=== PATIENT | male | born 1950 | race Caucasian/White ===

== ENCOUNTER 2021-02-06 16:40 | Emergency (ER) | payer OTHER ==
[2021-02-06 16:50] VITALS: BP 160/99; PULSE 73; TEMP 98.7; BMI 30.7
[2021-02-06] MEDS ORDERED: METHOCARBAMOL 500 MG TABLET PO ONE (17:15)
[2021-02-06] MEDS ORDERED: NAPROXEN 500 MG TABLET PO ONE (17:15)
[2021-02-06] MEDS ORDERED: METHOCARBAMOL 500 MG TABLET ONE (17:16)
[2021-02-06] MEDS ORDERED: NAPROXEN 500 MG TABLET ONE (17:17)
== END 2021-02-06 18:14 | disposition home or self-care (01) ==
LOC: JERFT 16:40
DX: M79.605 Pain in left leg (principal); M76.32 Iliotibial band syndrome, left leg
CPT/HCPCS: 93971-TC; 99284-25